=== PATIENT | male | born 2000 | race Caucasian/White ===

== ENCOUNTER 2024-05-13 12:22 | Emergency (ER) | payer OTHER, SELFPAY ==
[2024-05-13 12:23] VITALS: BP 128/71; PULSE 94; RESP 20; TEMP 36.9; O2SAT 95; BMI 31.1
[2024-05-13 13:42] VITALS: O2SAT 98
--- NOTE | 2024-05-13 13:42 | EKG12_ITS ---
Test Reason : SYNCOPE Blood Pressure : */* mmHG Vent. Rate : 70 BPM Atrial Rate : 70 BPM P-R Int : 150 ms QRS Dur : 80 ms QT Int : 358 ms P-R-T Axes : 47 47 40 degrees QTcB Int : 386 ms Normal sinus rhythm Normal ECG Confirmed by ADAN PENNY, KELSY ([id number]), news assignment editor ELIZABETH GARZA ([id number]) on 05/15/2024 8:11:22 AM Referred By: Confirmed By: KELSY ARELLANO MD
--- NOTE | 2024-05-13 13:50 | RAD_ITS ---
INDICATION: chest pain EXAMINATION/TECHNIQUE: X-RAY - XR Chest 1 View COMPARISON: No relevant prior comparison study available FINDINGS: LINES/DEVICES: None. LUNGS: No consolidation, edema or effusion. No pneumothorax. MEDIASTINUM AND CARDIOVASCULAR STRUCTURES: Cardiac silhouette not enlarged. Central airways and mediastinal contour are unremarkable. BONES AND SOFT TISSUES: Unremarkable. RAD/Chest 1 View (Portable) IMPRESSION: No radiographic evidence of acute cardiopulmonary disease. Electronically Signed: Rosa Nelson MD at 14:29 EST ,
[2024-05-13 14:09] LABS: Absolute Lymphocyte Count 1.83 X10^3/uL (0.83-4.51); Absolute Neutrophil Count 3.5 X10^3/uL (2.0-7.7); Basophil# 0.05 X10^3/uL; Basophil% 0.9 % (0-1); Eosinophil# 0.08 X10^3/uL; Eosinophils% 1.4 % (0-5); Hematocrit 46.9 % (40-54); Hemoglobin 16.6 g/dL (13.0-16.5); Lymphocyte # 1.83 X10^3/ul (0.83-4.51); Lymphocyte % 31.6 % (19-41); Mean Corp Hgb Conc 35.4 g/dL (32-36); Mean Corpuscular Hgb 31.2 pg (27.0-32.0); Mean Corpuscular Volume 88.2 fL (80-94); Mean Platelet Vol. 10.3 fl (6.2-12.0); Monocyte# 0.33 X10^3/uL; Monocyte% 5.7 % (0-10); NRBC Flagged by Analyzer 0 % (0-5); Neutrophil # 3.47 X10^3/uL (2.7-7.7); Neutrophil % 59.9 % (47-70); Platelet Count 253 K/mm3 (150-450); RBC Distribution Width CV 11.6 % (11.6-14.6); Red Blood Count 5.32 M/mm3 (4.6-6.2); White Blood Count 5.8 K/mm3 (4.4-11.0)
[2024-05-13 14:21] LABS: Anion Gap 14 (5-15); BUN 10 mg/dL (7-18); BUN/Creat Ratio 5.9 RATIO (10-20); Calcium,Total 9.7 mg/dL (8.5-10.1); Chloride 106 mmol/L (98-107); EST Glomerular Filtration Rate 53 mL/min (>60); Est Glom Filt Rate - Afr Amer 64 mL/min (>60); Estimated Creatinine Clearance 79.57 ml/min; Glucose 145 mg/dL (74-106); Magnesium 2.1 mg/dL (1.6-2.6); Potassium 3.6 mmol/L (3.5-5.1); Sodium Level 139 mmol/L (136-145); Troponin-I HS (w/2H Reflex) < 3 pg/mL (3.0-78.0)
[2024-05-13] MEDS: 0.9% Normal Saline (500mL Bag) 500 ML 999 ML IV (14:21)
--- NOTE | 2024-05-13 14:22 | ED.RN ---
FLUID BAG SAYS INCORRECT BAR CODE
[2024-05-13 14:23] VITALS: BP 128/75; PULSE 68; RESP 19; O2SAT 98
[2024-05-13 14:49] VITALS: BP 102/55; BP 104/58; BP 111/48; PULSE 67; PULSE 77; PULSE 87
[2024-05-13 15:10] VITALS: BP 110/54; PULSE 71; RESP 18; TEMP 36.8; O2SAT 98
--- NOTE | 2024-05-13 15:37 | EX.ED.DYSGE1 ---
HPI History of Present Illness Chief Complaint: Syncope Narrative Narrative: Patient is a 23 male who is presenting to the ER today with chief complaint of a near syncopal episode that occurred during physical activity this morning for [email or web address] testing. Patient stated that he was doing push-ups, sit ups, and ran 3 out of 6 labs on a track before he started feeling lightheaded, slightly weak, fatigued, and then slowly sat himself down and felt like he was going to pass out. When patient vitally stood up, he felt weak and fatigued, no chest pain, tightness, weakness. No shortness of breath. No headache. Patient father and girlfriend at bedside. Patient stated that he was up all night last night, and did not sleep at all because he was nervous about the results of testing today, anxious, stated could not sleep. Patient says he does not normally stay up all night long secondary to anxiety or stress. Patient denies any illicit drug use. Non-smoker, occasional alcohol. No recent head injury. No history of seizure. No cardiac history. No heart or pulmonary history. Patient has no recent traveling, no trauma. Patient states he has been eating and drinking recently normal. Patient is very tired. Currently has no headache or neck pain. No chest pain or shortness of breath. No abdominal pain nausea or vomiting. Patient said he did vomit 3 times and EMS came to the tract to pick him up, he currently has no nausea at this time. Patient is uncertain why he did vomit 3 times versus just being fatigued from the physical activity and lack of sleep. PFSH PFSH Allergy/AdvReac Type Severity Reaction Status Date / Time No Known Allergies Allergy Verified 05/13/24 12:26 Social History Smoking Status: Current every day smoker tobacco type: e-cigarettes ROS ROS ED ROS Narrative REVIEW OF SYSTEMS: Unless otherwise stated in this report the patient's positive and negative responses for review of systems for constitutional, eyes, ENT, cardiovascular, respiratory, gastrointestinal, neurological, , musculoskeletal, and integument systems and related systems to the presenting problem are either stated in the history of present illness or were not pertinent or were negative for the symptoms and/or complaints related to the presenting medical problem. EXAM Physical Exam Narrative Exam Narrative: Vital signs reviewed and patient is not hypoxic. General: The patient appears well and in no apparent distress. Patient is resting comfortably on cart. Not toxic, lethargic, or listless. Skin: Warm, dry, no pallor noted. There is no rash noted. Head: Normocephalic, atraumatic; No carotid bruits bilateral eye: Normal conjunctiva, no drainage, EOMI. PERRL. Ears, Nose, Mouth, and Throat: oral mucosa is moist. Nares patent. Mouth without vesicles. Cardiovascular: Regular Rate and Rhythm, no murmurs, gallops, or rubs Respiratory: Patient is in no distress, no accessory muscle use, lungs are clear to auscultation, no wheezing, rales or rhonchi Back: non-tender, no CVA tenderness bilaterally to percussion. NO CTLS midline or paraspinal tenderness to palpation. GI: Soft, no tenderness to palpation, no masses appreciated. No rebound, guarding, or rigidity noted. Musculoskeletal: The patient has full range of motion of all extremities and joints with no difficulty. Patient has no motor, no sensory deficits. Neurological: A&O x4, normal speech, no focal neurological deficits. Patient is sedated, but opens eyes, answers questions appropriately, states that he is sedated secondary to being up all night and then physical activity this morning. Psychiatric: Cooperative sedation, not hallucinating, not delirious, does not appear to be postictal, Const Vital Signs: 05/13/24 12:23 05/13/24 12:26 05/13/24 13:42 Temperature 98.5 F Temperature Source Oral Pulse Rate 94 Pulse Rate [Lying] Pulse Rate [Sitting (for 1 minute prior to obtaining)] Pulse Rate [Standing (for 1 minute prior to obtaining)] Respiratory Rate 20 H Respiratory Pattern Normal Blood Pressure 128/71 H Blood Pressure [Lying] Blood Pressure [Sitting (for 1 minute prior to obtaining)] Blood Pressure [Standing (for 1 minute prior to obtaining)] Blood Pressure Mean 90 Blood Pressure Mean [Lying] Blood Pressure Mean [Sitting (for 1 minute prior to obtaining)] Blood Pressure Mean [Standing (for 1 minute prior to obtaining)] Pulse Ox 95 98 Oxygen Delivery Method Room Air Room Air 05/13/24 14:23 05/13/24 14:49 05/13/24 15:10 Temperature 98.2 F Temperature Source Pulse Rate 68 71 Pulse Rate [Lying] 77 Pulse Rate [Sitting (for 1 minute prior to obtaining)] 67 Pulse Rate [Standing (for 1 minute prior to obtaining)] 87 Respiratory Rate 19 H 18 Respiratory Pattern Blood Pressure 128/75 H 110/54 L Blood Pressure [Lying] 102/55 L Blood Pressure [Sitting (for 1 minute prior to obtaining)] 104/58 L Blood Pressure [Standing (for 1 minute prior to obtaining)] 111/48 L Blood Pressure Mean 92 72 Blood Pressure Mean [Lying] 70 Blood Pressure Mean [Sitting (for 1 minute prior to obtaining)] 73 Blood Pressure Mean [Standing (for 1 minute prior to obtaining)] 69 Pulse Ox 98 98 Oxygen Delivery Method Room Air MDM MDM MDM Narrative Medical decision making narrative: Patient does feel better after 1 L of IV fluid. EKG, chest x-ray, lab work shows no other acute abnormalities besides a BUN of 10 and creatinine of 1.7. Patient's sugar was slightly elevated 145. He is not diabetic. Education on creatinine of 1.7, hydration and sleeping was done at bedside. Patient has no history of kidney abnormalities. Patient does not take a significant anti-inflammatories. Patient has never been told his creatinine levels elevated before. Patient will continue increase fluids at home, Gatorade, Powerade and water. Patient and father and girlfriend at bedside understand the importance of following up with PCP for repeat testing of Patient's kidney function, urine sample, and lab work. Patient did not sleep at all last night, and then went for agility and physical fitness testing for the [email or web address] this morning. Patient stated that he was anxious all night about his performance today and that is why he could not sleep. Patient has been sleeping most of the ER visit. No one else is concerned about any illicit drug use, head injury, or any other type of mental health concerns. No history of seizure. Patient does have a PCP to follow-up with. No questions from patient or father or girlfriend at discharge. Lab Data Attestation: I reviewed the patient's lab results. Labs: Laboratory Results - last 24 hr 05/13/24 12:31 WBC 5.8 RBC 5.32 Hgb 16.6 H Hct 46.9 MCV 88.2 MCH 31.2 MCHC 35.4 RDW Std Deviation 37.0 RDW Coeff of Bina 11.6 Plt Count 253 MPV 10.3 Immature Gran % (Auto) 0.500 Neut % (Auto) 59.9 Lymph % (Auto) 31.6 Ramsey % (Auto) 5.7 Eos % (Auto) 1.4 Baso % (Auto) 0.9 Absolute Neuts (auto) 3.5 Absolute Lymphs (auto) 1.83 Nucleated RBC % 0 Sodium 139 Potassium 3.6 Chloride 106 Carbon Dioxide 20.0 L Anion Gap 14 BUN 10 Creatinine 1.70 H Estim Creat Clear Calc 79.57 Est GFR (MDRD) Af Amer 64 Est GFR (MDRD) Non-Af 53 L BUN/Creatinine Ratio 5.9 L Glucose 145 H Calcium 9.7 Magnesium 2.1 Troponin I High Sens < 3 L TSH 2.300 Radiography Chest X-Ray - ED: 1 View and Read by ED Physician (Chest x-ray shows no acute cardiopulmonary disease, no filtrate, no effusion.) Diagnostic Testing: Clinical Impression(s) from Imaging Studies Chest X-Ray 05/13/24 13:50 IMPRESSION: No radiographic evidence of acute cardiopulmonary disease. Electronically Signed: Rosa Nelson MD at 14:29 EST , EKG Initial EKG: Attestation: I personally reviewed and interpreted this EKG as follows: (EKG interpretation. Normal sinus rhythm at 70 beats a minute. No axis deviation. No acute ST elevation, no acute ectopy. QTc of 386. Patient does show signs of possible early repolarization with diffuse minimal ST elevation) Discharge Plan Triage Chief Complaint: Syncope ED Provider: Camacho Loja Dx/Rx/DC Orders Clinical Impression: Near syncope, Dehydration, Creatinine elevation, Insomnia Instructions: Dehydration, ED Insomnia, ED Near-Fainting, Uncertain Cause, ED Vomiting (Adult), ED Renal Insufficiency Primary Care Provider: Care Physician,No Primary Referrals: Care Physician,No Primary [Primary Care Provider] - Activity Restrictions/Additional Instructions: Increase Gatorade, Powerade, water at home. If you continue to have any type of insomnia or sleeping difficulties, follow-up with PCP. Your creatinine is 1.7, high normal is 1.2. Limit anti-inflammatories, increase fluids. Follow-up with PCP for further additional testing in 1 week. EKG, heart testing shows no acute pathology. Print Language: Estonian Disposition Disposition: Home, Self Care Discharge Date/Time: 05/13/24 15:11
[2024-05-13 15:48] LABS: Reflex Troponin-HS? (from REC) Y
== END 2024-05-13 15:11 | disposition home or self-care (01) ==
PROVIDERS: Emergency Provider Emergency Medicine; Visit Provider Emergency Medicine
DX: E86.0 Dehydration (principal); R55 Syncope and collapse; R11.10 Vomiting, unspecified; R79.89 Other specified abnormal findings of blood chemistry; G47.00 Insomnia, unspecified; F17.290 Nicotine dependence, other tobacco product, uncomplicated
CPT/HCPCS: 71045; 80048; 83735; 84443; 84484; 85025; 93005; 99285